=== PATIENT | female | born 1955 | race Caucasian/White ===

== ENCOUNTER 2016-12-01 10:10 | Outpatient (CLI) | payer OTHER ==
[2016-12-01 11:29] LABS: HEMOGLOBIN A1C 1.83 g/dL
== END 2016-12-01 10:11 | disposition home or self-care (01) ==
LOC: LAB 10:10
PROVIDERS: ATTEND Obstetrics & Gynecology
DX: Z13.1 Encounter for screening for diabetes mellitus (principal)
CPT/HCPCS: 36415; 82947; 83036; 86803

== ENCOUNTER 2016-12-06 13:42 | Outpatient (CLI) | payer OTHER ==
--- NOTE | 2016-12-09 18:15 | Mammography Report ---
DIGITAL BILATERAL SCREENING MAMMOGRAM: 12/06/2016 HISTORY: Asymptomatic 61-year-old female. COMPARISON: 02/2012 and 02/2008. TECHNIQUE: Routine CC and MLO projections were obtained of the breasts. FINDINGS: Scattered fibroglandular tissue is present within the breasts. There are no dominant masses, suspicious microcalcifications, or secondary signs of malignancy. In comparison to the previous studies, there are no significant changes. The pattern of glandular asymmetry is stable. Benign vascular and parenchymal calcifications noted. ASSESSMENT: NO MAMMOGRAPHIC EVIDENCE OF MALIGNANCY. NO SIGNIFICANT INTERVAL CHANGES. RECOMMENDATION: Screening mammography is recommended annually. BIRADS category 2 - benign. STANDARD QUALIFYING STATEMENTS 1. This examination was reviewed with the aid of Computed-Aided Detection (CAD) . 2. A negative or benign imaging report should not delay biopsy if clinically suspicious findings are present. Consider surgical consultation if warranted. More than 5% of cancers are not identified by imaging. 3. Dense breasts may obscure an underlying neoplasm. JOB #: [id number] EXT JOB #: [id number] KENA
== END 2016-12-06 13:43 | disposition home or self-care (01) ==
LOC: DI 13:42
PROVIDERS: ATTEND Obstetrics & Gynecology
DX: Z12.31 Encounter for screening mammogram for malignant neoplasm of breast (principal)
CPT/HCPCS: 77067

== ENCOUNTER 2018-10-04 08:00 | Outpatient (CLI) | payer OTHER ==
[2018-10-04 16:58] LABS: H. PYLORIS ANTIGEN STL NEGATIVE (Negative)
== END 2018-10-04 23:59 | disposition home or self-care (01) ==
LOC: LAB.R 08:00
PROVIDERS: ATTEND Student in an Organized Health Care Education/Training Program
DX: R10.13 Epigastric pain (principal); R19.4 Change in bowel habit
CPT/HCPCS: 87338

== ENCOUNTER 2018-10-22 13:08 | Outpatient (CLI) | payer OTHER ==
--- NOTE | 2018-10-23 14:53 | Ultrasound Report ---
Reason: POSTMENOPAUSAL VAGINAL BLEEDING Procedure Date: 10/22/2018 Accession Number: [id number] / [id number] Procedure: US - Pelvic w/Transvaginal CPT Code: FULL RESULT: EXAM: PELVIC ULTRASOUND EXAM DATE: 10/22/2018 01:44 PM. CLINICAL HISTORY: Intermittent postmenopausal bleeding. COMPARISON: None. TECHNIQUE: Realtime transabdominal pelvic scan performed to identify the uterus and adnexa and as an overview of other pelvic structures, with static image documentation. Patient declined transvaginal imaging. FINDINGS: Uterus: 7.2 x 3.6 x 4.5 cm, volume 60 cc. Anteverted position. Normal overall size and echotexture. Masses: None. Endometrium: 2 mm. Normal. Cervix: Unremarkable. Right Ovary: 1.9 x 0.9 x 1.6 cm, volume 1.5 cc. Normal echotexture and blood flow. Left Ovary: Not visualized. Free Fluid: None. Other: None. IMPRESSION: 1. Thin likely atrophic endometrium. No masses. 2. Left ovary not visualized and likely obscured by bowel gas. RADIA
== END 2018-10-22 13:09 | disposition home or self-care (01) ==
LOC: DI 13:08
PROVIDERS: ATTEND Obstetrics & Gynecology
DX: N95.0 Postmenopausal bleeding (principal)
CPT/HCPCS: 76830; 76856

== ENCOUNTER 2018-11-05 16:04 | Outpatient (CLI) | payer OTHER ==
[2018-11-05 16:17] LABS: BASOPHILS % (AUTO) 0.5 %; EOSINOPHILS # (AUTO) 0.1 10^3/uL (0.0-0.7); EOSINOPHILS % (AUTO) 1.4 %; HGB - HEMOGLOBIN 14.9 g/dL (12.0-16.0); LYMPHOCYTES # (AUTO) 2.2 10^3/uL (1.5-3.5); LYMPHOCYTES % (AUTO) 34.4 %; MEAN CORPUSCULAR HEMOGLOBIN 30.7 pg (27.0-31.0); MEAN CORPUSCULAR VOLUME 93.2 fL (81.0-99.0); MEAN PLATELET VOLUME 9.4 fL (7.9-10.8); MONOCYTES # (AUTO) 0.5 10^3/uL (0.0-1.0); MONOCYTES % (AUTO) 7.7 %; NEUTROPHILS # (AUTO) 3.5 10^3/uL (1.5-6.6); NEUTROPHILS % (AUTO) 55.8 %; PLT - PLATELET COUNT 256 10^3/uL (130-450); RED BLOOD COUNT 4.85 10^6/uL (4.20-5.40); RED CELL DISTRIBUTION WIDTH 13.4 % (12.0-15.0); WHITE BLOOD COUNT 6.3 x10^3/uL (4.8-10.8)
[2018-11-05 16:40] LABS: BUN - BLOOD UREA NITROGEN 15 mg/dL (6-20); CALCIUM 9.6 mg/dL (8.5-10.3); CARBON DIOXIDE - CO2 23 mmol/L (21-32); CHLORIDE 104 mmol/L (101-111); CHOL/HDL RATIO 3.9 (<4.4); CHOLESTEROL 152 mg/dL; CREATININE 0.7 mg/dL (0.4-1.0); GFR - MDRD 84 (>89); GLUCOSE 211 mg/dL (70-100); HDL CHOLESTEROL 39 mg/dL; LDL CHOLESTEROL,CALCULATED 69 mg/dL; LDL/HDL RATIO 1.8 (<4.4); SODIUM 139 mmol/L (135-145); VLDL CHOLESTEROL 44 mg/dL
== END 2018-11-05 16:05 | disposition home or self-care (01) ==
LOC: LAB 16:04
PROVIDERS: ATTEND Internal Medicine Cardiovascular Disease
DX: I25.10 Atherosclerotic heart disease of native coronary artery without angina pectoris (principal); E78.5 Hyperlipidemia, unspecified
CPT/HCPCS: 36415; 80048; 80061; 83721; 85025

== ENCOUNTER 2018-12-07 14:18 | Outpatient (CLI) | payer OTHER ==
--- NOTE | 2018-12-07 16:15 | Mammography Report ---
Reason: ROUTINE MAMMO Procedure Date: 12/07/2018 Accession Number: [id number] / [id number] Procedure: ISAAC - Screening Mammo w/Carl CPT Code: FULL RESULT: EXAM: Screening Mammo w/Carl DATE: 12/07/2018 2:46 PM CLINICAL HISTORY: Screening encounter. TECHNIQUE: (B) - Bilateral CC and MLO views were obtained. Left laterally exaggerated CC views obtained. COMPARISON: 12/06/2016 and 03/12/2012. PARENCHYMAL PATTERN: (A) - The breast(s) demonstrate(s) scattered fibroglandular densities. FINDINGS: There are typically benign vascular calcifications. There are typically benign coarse calcifications. There are no suspicious masses, calcifications, or areas of distortion. IMPRESSION: Benign findings. BI-RADS category 2. RECOMMENDATION: (ANNUAL) - Recommend routine annual screening mammography. BI-RADS CATEGORY: (2) - Benign Findings. STANDARD QUALIFYING STATEMENTS: 1. This examination was not reviewed with the aid of Computer-Aided Detection (CAD). 2. A negative or benign imaging report should not preclude biopsy if clinically suspicious findings are present. 3. Dense breasts may obscure an underlying neoplasm. 4. This examination was reviewed with the aid of 3D breast imaging (tomosynthesis).
== END 2018-12-07 14:19 | disposition home or self-care (01) ==
LOC: DI 14:18
PROVIDERS: ATTEND Obstetrics & Gynecology
DX: Z12.31 Encounter for screening mammogram for malignant neoplasm of breast (principal)
CPT/HCPCS: 77063; 77067

== ENCOUNTER 2020-03-19 21:03 | Emergency (ER) | payer OTHER ==
--- NOTE | 2020-03-19 21:36 | ED Physician Documentation ---
PD HPI HEENT - Stated complaint Stated Complaint: DIZZY, VOMITING, DIARRHEA - Chief complaint Chief Complaint: Neuro - History obtained from History obtained from: Patient - History of Present Illness Timing - onset: How many days ago (2) Timing - duration: Days (2) Timing - details: Gradual onset, Still present, Waxing and waning Location: Other (feeling of vertigo with head movement, improved with rest. Worse to right or lying on right. Some feeling of ear fullness and frontal sinus/head area. Some headache frontal. No diffuse headache. No fumbling with movements.) Associated symptoms: No: Fever, Congestion, Swollen nodes, Cough Similar symptoms before: Diagnosis (had vertigo in the past, associated with some headache and told it was migraine. Ongoing tinnitus, but not regular vertigo.) Recently seen: Clinic (had Metformin stopped and Januvia increased about a month ago.) Review of Systems Ears: reports: Ear pain (feels fullness right ear and also some frontal sinus headache), Tinnitus/ringing (chronic, somewhat worse recently). denies: Loss of hearing Nose: reports: Congestion, Sinus pressure / pain. denies: Rhinorrhea / runny nose Throat: denies: Sore throat Respiratory: denies: Cough GI: reports: Nausea (with head movement, improved with rest. Notes it more when turning or lying on right.), Vomiting. denies: Abdominal Pain, Constipation, Diarrhea Skin: denies: Rash, Lesions Neurologic: reports: Headache (frontal area). 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 : None Musculoskeletal: None Derm: None Other Past Medical History: IBS - Past Surgical History Past Surgical History: Yes Cardiovascular: Coronary stent, Other - Present Medications Home Medications: Ambulatory Orders Medication Instructions Recorded Confirmed Vitamin E (Dl,Tocopheryl Acet) 1 tab PO DAILY 12/05/15 12/05/15 [Vitamin E] Aspirin Chewable [St Stefan 1 tab PO DAILY 03/19/20 03/19/20 Aspirin] Atorvastatin Calcium 1 tab PO DAILY 03/19/20 03/19/20 Clopidogrel [Plavix] 1 tab PO DAILY 03/19/20 03/19/20 Empagliflozin [Jardiance] 1 tab PO BID 03/19/20 03/19/20 Losartan Potassium 1 tab PO BID 03/19/20 03/19/20 Metoprolol Succinate [Toprol Xl] 1 tab PO DAILY 03/19/20 03/19/20 Nitroglycerin [Nitrostat] 1 tab PO PRN PRN 03/19/20 03/19/20 Pantoprazole [Protonix] 1 tab PO DAILY 03/19/20 03/19/20 Diazepam [Valium] 2 mg PO Q8H PRN #12 tablet 03/20/20 Meclizine HCl [Antivert] 25 mg PO Q8H PRN #30 tablet 03/20/20 dexAMETHasone [Decadron] 4 mg PO DAILY #5 tablet 03/20/20 - Allergies Allergies/Adverse Reactions: Allergies Allergy/AdvReac Type Severity Reaction Status Date / Time Opioids - Morphine Analogues Allergy Emesis Verified 03/19/20 21:09 Penicillins Allergy Unknown Verified 03/19/20 21:09 Sulfa (Sulfonamide Allergy Emesis Verified 03/19/20 21:09 Antibiotics) - Social History Does the pt smoke?: No Smoking Status: Never smoker Does the pt drink ETOH?: No Does the pt have substance abuse?: No - Immunizations Immunizations are current?: Yes - POLST Patient has POLST: No PD ED PE NORMAL - Vitals Vital signs reviewed: Yes - General General: Alert and oriented X 3, Well developed/nourished, Other (appears uncomfortable with head movement, particularly to the right. ) - HEENT HEENT: Atraumatic, PERRL, EOMI (with nystagmus fast component to the right. TMs are normal appearing. ), Ears normal, Moist mucous membranes, Pharynx benign, Other (some mild tenderness frontal area to percussion. 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, No motor deficit, No sensory deficit, Normal speech, Other Eye Opening: Spontaneous Motor: Obeys Commands Verbal: Oriented GCS Score: 15 - Psych Psych: Normal mood Results - Vitals Vitals: Vital Signs - 24 hr 03/19/20 03/19/20 03/19/20 21:06 21:09 22:56 Temperature 36.6 C 36.6 C 36.6 C Heart Rate 78 78 64 Respiratory 16 16 15 Rate Blood Pressure 167/83 H 167/83 H 143/90 H O2 Saturation 99 99 99 03/19/20 03/20/20 03/20/20 23:47 01:49 02:29 Temperature 36.6 C 36.7 C 36.7 C Heart Rate 62 65 64 Respiratory 15 16 16 Rate Blood Pressure 128/85 H 129/84 H 130/82 H O2 Saturation 100 100 98 Oxygen O2 Source Room air - Labs Labs: Laboratory Tests 03/19/20 03/19/20 03/19/20 21:30 21:37 21:37 WBC 7.1 RBC 5.39 Hgb 16.9 H Hct 49.3 H MCV 91.5 MCH 31.4 H MCHC 34.3 RDW 12.4 Plt Count 238 MPV 10.2 Neut # (Auto) 5.3 Lymph # (Auto) 1.4 L Chambers # (Auto) 0.4 Eos # (Auto) 0.1 Baso # (Auto) 0.0 Absolute Nucleated RBC 0.00 Nucleated RBC % 0.0 VBG pH VBG pCO2 VBG pO2 VBG HCO3 VBG Total CO2 VBG O2 Saturation VBG Base Excess Sodium 137 Potassium 3.9 Chloride 101 Carbon Dioxide 20 L Anion Gap 16.0 H BUN 14 Creatinine 0.7 Estimated GFR (MDRD) 84 L Glucose 163 H Calcium 9.3 Magnesium 2.1 Total Bilirubin 4.5 H AST 26 ALT 31 Alkaline Phosphatase 77 Total Protein 7.6 Albumin 4.5 Globulin 3.1 Albumin/Globulin Ratio 1.5 Serum Ketones SMALL H 03/20/20 01:25 WBC RBC Hgb Hct MCV MCH MCHC RDW Plt Count MPV Neut # (Auto) Lymph # (Auto) Chambers # (Auto) Eos # (Auto) Baso # (Auto) Absolute Nucleated RBC Nucleated RBC % VBG pH 7.392 VBG pCO2 27.6 L VBG pO2 151.4 H VBG HCO3 16.4 L VBG Total CO2 17.3 L VBG O2 Saturation 98.5 H VBG Base Excess -6.6 L Sodium Potassium Chloride Carbon Dioxide Anion Gap BUN Creatinine Estimated GFR (MDRD) Glucose Calcium Magnesium Total Bilirubin AST ALT Alkaline Phosphatase Total Protein Albumin Globulin Albumin/Globulin Ratio Serum Ketones PD MEDICAL DECISION MAKING - ED course Complexity details: reviewed results (head CT and labs), re-evaluated patient (improved vertigo and able to walk to bathroom, with getting up slowly. Still some vertigo but no vomiting. ), considered differential (seems like peripheral vertigo, but does have some frontal headache. Got CT to ensure no tumor, swelling, bleeding nor sinus fullness. The CT is okay. Meanwhile, gave IV fluids and Meclizing/Diazepam and vertigo much improved. ), d/w patient Departure - Departure Disposition: 01 Home, Self Care Clinical Impression: Peripheral vertigo Qualifiers: Laterality: right Qualified Code(s): H81.391 - Other peripheral vertigo, right ear Labyrinthitis, acute Qualifiers: Laterality: unspecified laterality Qualified Code(s): H83.09 - Labyrinthitis, unspecified ear Condition: Stable Record reviewed to determine appropriate education?: Yes Instructions: ED Labyrinthitis, ED Vertigo Unspecified Follow-Up: Genoveva Tomas MD [Primary Care Provider] - Prescriptions: Meclizine HCl [Antivert] 25 mg PO Q8H PRN #30 tablet PRN Reason: Vertigo dexAMETHasone [Decadron] 4 mg PO DAILY #5 tablet Diazepam [Valium] 2 mg PO Q8H PRN #12 tablet PRN Reason: Vertigo Comments: The Jardiance does not seem to be associated with vertigo. Presume it is unrelated. Your head CT is normal without any signs of tumors bleeding swelling or stroke. I think your vertigo/dizziness is coming from increased inflammation or fluid pressure in the inner ear causing an abnormal signaling to slight movement. I would anticipate improving on this with the steroid anti-inflammatory as well as motion sickness medicine. Take the Decadron and meclizine as directed regularly. To that add diazepam every 6-8 hours if needed for the dizziness. Move slow and change position smoothly. Follow-up with your primary care if not improved well over the next 1 to 2 days. Discharge Date/Time: 03/20/20 03:07
[2020-03-19 22:13] LABS: BASOPHILS % (AUTO) 0.4 %; EOSINOPHILS # (AUTO) 0.1 10^3/uL (0.0-0.7); EOSINOPHILS % (AUTO) 0.7 %; HGB - HEMOGLOBIN 16.9 g/dL (12.0-16.0); LYMPHOCYTES # (AUTO) 1.4 10^3/uL (1.5-3.5); LYMPHOCYTES % (AUTO) 19.3 %; MEAN CORPUSCULAR HEMOGLOBIN 31.4 pg (27.0-31.0); MEAN CORPUSCULAR HGB CONC 34.3 g/dL (32.0-36.0); MEAN CORPUSCULAR VOLUME 91.5 fL (81.0-99.0); MEAN PLATELET VOLUME 10.2 fL (7.9-10.8); MONOCYTES # (AUTO) 0.4 10^3/uL (0.0-1.0); MONOCYTES % (AUTO) 5.1 %; NEUTROPHILS # (AUTO) 5.3 10^3/uL (1.5-6.6); NEUTROPHILS % (AUTO) 74.1 %; PLT - PLATELET COUNT 238 10^3/uL (130-450); RED BLOOD COUNT 5.39 10^6/uL (4.20-5.40); RED CELL DISTRIBUTION WIDTH 12.4 % (12.0-15.0); WHITE BLOOD COUNT 7.1 x10^3/uL (4.8-10.8)
[2020-03-19] MEDS: KETOROLAC 30 MG/ML VIAL IVP STA (22:19)
[2020-03-19] MEDS: diazePAM INJ 5 MG/ML SYRINGE IVP STA (22:19)
[2020-03-19] MEDS: SODIUM CHLORIDE 0.9% 1,000 ML IV STA (22:20)
[2020-03-19] MEDS: ACETAMINOPHEN 325 MG TABLET PO STA (22:20)
[2020-03-19] MEDS: MECLIZINE 12.5 MG TABLET PO STA (22:20)
[2020-03-19 22:22] LABS: ALBUMIN 4.5 g/dL (3.2-5.5); ALBUMIN/GLOBULIN RATIO 1.5 (1.0-2.2); BILIRUBIN,TOTAL 4.5 mg/dL (0.2-1.0); CALCIUM 9.3 mg/dL (8.5-10.3); CREATININE 0.7 mg/dL (0.4-1.0); MAGNESIUM 2.1 mg/dL (1.7-2.8); TOTAL PROTEIN 7.6 g/dL (6.7-8.2)
[2020-03-19] MEDS: KETOROLAC 15 MG/ML VIAL IVP STA (22:41)
[2020-03-20] MEDS: diazePAM INJ 5 MG/ML SYRINGE IVP STA (00:06)
[2020-03-20] MEDS: DEXAMETHASONE 10 MG/ML VIAL IVP STA (00:06)
[2020-03-20] MEDS: SODIUM CHLORIDE 0.9% 1,000 ML IV STA (01:16)
[2020-03-20 01:30] LABS: VBG PCO2 27.6 mmHg (41-51); VBG PH 7.392 (7.31-7.41); VBG PO2 151.4 mmHg (25-47); VBG TOTAL CO2 17.3 mmol/L (24-29)
[2020-03-20 01:31] LABS: VBG BASE EXCESS -6.6 mmol/L (-2 - +2)
[2020-03-20 02:30] VITALS: BP 130/82
--- NOTE | 2020-03-20 07:12 | CT Report ---
PROCEDURE: HEAD WO INDICATIONS: frontal headache and dizziness TECHNIQUE: Noncontrast 4.5 mm thick angled axial sections acquired from the foramen magnum to the vertex. For r adiation dose reduction, the following was used: automated exposure control, adjustment of mA and/or kV according to patient size. COMPARISON: None. FINDINGS: Image quality: Excellent. CSF spaces: Basal cisterns are patent. No extra-axial fluid collections. Ventricles are normal in size and shape. Brain: No midline shift. No intracranial masses or hemorrhage. Walden-white matter interface is norm al. Scattered bilateral periventricular white matter hypoattenuation likely sequela from chronic small ve ssel ischemic disease. Atherosclerotic calcifications within the intracranial segments of the bilater al internal carotid arteries are noted. Skull and face: Calvarium and visualized facial bones are intact, without suspicious lesions. Sinuses: Visualized sinuses and mastoids are clear. IMPRESSION: CT head without acute intracranial abnormalities. Age-related senescent changes and sequela of chronic small vessel ischemic disease. No significant discrepancy with initial interpretation by overnight radiologist. Reviewed by: Juan Archer MD on 03/20/2020 7:11 AM PST Approved by: Juan Archer MD on 03/20/2020 7:11 AM PST Station ID: [id number]
== END 2020-03-20 03:07 | disposition home or self-care (01) ==
LOC: ED 21:03
DX: H81.391 Other peripheral vertigo, right ear (principal); H83.09 Labyrinthitis, unspecified ear; I10 Essential (primary) hypertension; E11.9 Type 2 diabetes mellitus without complications; Z79.4 Long term (current) use of insulin
CPT/HCPCS: 36415; 70450; 80053; 82009; 82803; 83735; 85025; 96361; 96374; 96375; 99284; A9270

== ENCOUNTER 2020-08-20 10:43 | Outpatient (CLI) | payer OTHER ==
--- NOTE | 2020-08-21 13:23 | Mammography Report ---
BILATERAL DIGITAL SCREENING MAMMOGRAM 3D/2D: 08/20/2020 CLINICAL: Routine screening. Comparison is made to exams dated: 12/07/2018 mammogram, 12/15/2016 mammogram, and 03/12/2012 mammogra m - [facility]. There are scattered fibroglandular elements in both breasts. There are benign vascular calcifications in both breasts. No significant masses, calcifications, or other findings are seen in either breast. There has been no significant interval change. IMPRESSION: BENIGN There is no mammographic evidence of malignancy. A 1 year screening mammogram is recommended. This exam was interpreted at Station ID: [id number]. NOTE: For mammograms, a report in lay terms will be sent to the patient. Approximately 15% of breast malignancies will not be visualized mammographically. In the management of a palpable breast mass, a negative mammogram must not discourage biopsy of a clinically suspicious lesion. Electronically Signed By: Frida Oliva M.D. krrhea/penrad:08/20/2020 19:49:39 ACR BI-RADS Category 2: Benign Finding(s) 3342F PARENCHYMAL PATTERN: (A) - The breast(s) demonstrate(s) scattered fibroglandular densities. BI-RADS CATEGORY: (2) - 2 RECOMMENDATION: (ANNUAL) - Recommend routine annual screening mammography. [id number] 1 year screening LATERALITY: (B)
== END 2020-08-20 10:44 | disposition home or self-care (01) ==
LOC: DI 10:43
PROVIDERS: ATTEND Internal Medicine
DX: Z12.31 Encounter for screening mammogram for malignant neoplasm of breast (principal)

== ENCOUNTER 2020-09-12 07:39 | Day surgery (SDC) | payer OTHER ==
[2020-09-12] MEDS ORDERED: LACTATED RINGERS 1,000 ML IV ONE (08:14)
[2020-09-12] MEDS ORDERED: fentaNYL 250 MCG/5 ML VIAL ONE (09:49)
[2020-09-12] MEDS ORDERED: MIDAZOLAM 2 MG/2 ML VIAL ONE ×2 (09:49→10:12)
[2020-09-12] MEDS ORDERED: ONDANSETRON 4 MG/2 ML VIAL ONE (09:50)
[2020-09-12] MEDS ORDERED: LACTATED RINGERS 600 ML IV ONE (10:33)
[2020-09-12 11:15] VITALS: BP 123/73
== END 2020-09-12 07:40 | disposition home or self-care (01) ==
LOC: SDS 07:39
PROVIDERS: ATTEND Surgery
PROC: 0DBL8ZZ Excision of Transverse Colon, Via Natural or Artificial Opening Endoscopic (ICD-10-PCS; 2020-09-12)
PROC: 0DBK8ZZ Excision of Ascending Colon, Via Natural or Artificial Opening Endoscopic (ICD-10-PCS; principal; 2020-09-12 09:45)
DX: Z12.11 Encounter for screening for malignant neoplasm of colon (principal); D12.2 Benign neoplasm of ascending colon; D12.3 Benign neoplasm of transverse colon; K64.8 Other hemorrhoids; K64.4 Residual hemorrhoidal skin tags; Z87.891 Personal history of nicotine dependence
CPT/HCPCS: 45380; J3010; J7120

== ENCOUNTER 2021-05-17 14:54 | Emergency (ER) | payer OTHER ==
[2021-05-17 15:02] VITALS: BP 161/85
--- NOTE | 2021-05-17 15:33 | XRAY Report ---
PROCEDURE: Foot 3 View LT INDICATIONS: Trauma TECHNIQUE: 3 views of the foot were acquired. COMPARISON: None. FINDINGS: BONES: No acute, displaced fracture or dislocation. Dorsal calcaneal enthesophyte. SOFT TISSUES: No focal abnormality. Diffuse vascular calcifications. IMPRESSION: 1.No acute osseous abnormality. Reviewed by: Johnson Turner MD on 05/17/2021 3:[address] [facility] Approved by: Johnson Turner MD on 05/17/2021 3:[address] [facility] Station ID: [id number]
--- NOTE | 2021-05-17 16:20 | ED Physician Documentation ---
History of Present Illness - Stated complaint Stated Complaint: L FT INJ - Chief complaint Chief Complaint: Ext Problem - Additonal information Additional information: 66 year old female presents with acute left foot pain. reports that for months her arch has her. Suddenly last night when walking she felt a severe pop and pain and now has bruising. difficulty bearing weight. no fevers. no xh fo similar. 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 : None Musculoskeletal: None Derm: None - Past Surgical History Past Surgical History: Yes Cardiovascular: Coronary stent, Other - Present Medications Home Medications: Ambulatory Orders Medication Instructions Recorded Confirmed Vitamin E (Dl,Tocopheryl Acet) 1,000 unit PO DAILY 12/05/15 09/12/20 [Vitamin E] Aspirin Chewable [St Stefan 1 tab PO DAILY 03/19/20 09/12/20 Aspirin] Atorvastatin Calcium 1 tab PO DAILY 03/19/20 09/12/20 Empagliflozin [Jardiance] 1 tab PO DAILY 03/19/20 09/12/20 Losartan Potassium 1 tab PO BID 03/19/20 09/12/20 Metoprolol Succinate [Toprol Xl] 1 tab PO DAILY 03/19/20 09/12/20 Nitroglycerin [Nitrostat] 1 tab PO PRN PRN 03/19/20 09/12/20 Pantoprazole [Protonix] 1 tab PO DAILY 03/19/20 09/12/20 Diazepam [Valium] 2 mg PO Q8H PRN #12 tablet 03/20/20 09/12/20 Meclizine HCl [Antivert] 25 mg PO Q8H PRN #30 tablet 03/20/20 09/12/20 polyethylene glycoL 3350 [Miralax] 17 gm PO DAILY 09/12/20 09/12/20 - Allergies Allergies/Adverse Reactions: Allergies Allergy/AdvReac Type Severity Reaction Status Date / Time Opioids - Morphine Analogues Allergy Emesis Verified 05/17/21 15:00 Penicillins Allergy Unknown Verified 05/17/21 15:00 Sulfa (Sulfonamide Allergy Emesis Verified 05/17/21 15:00 Antibiotics) - Social History Does the pt smoke?: No Smoking Status: Never smoker Does the pt drink ETOH?: No Does the pt have substance abuse?: No - Immunizations Immunizations are current?: Yes - POLST Patient has POLST: No PD ED PE EXPANDED - General General: Alert, No acute distress - Extremities Extremities: Left foot (swelling, ecchytmosis medial arch. 2+DP pulse. no pain at base fo 5th metatarsal. full ROM in all planes) Results - Vitals Vitals: Vital Signs - 24 hr 05/17/21 15:00 Temperature 36.4 C L Heart Rate 79 Respiratory 18 Rate Blood Pressure 161/85 H O2 Saturation 98 Oxygen O2 Source Room air - Rads (name of study) left foot xr Radiology: Final report received (no acute fracture) PD MEDICAL DECISION MAKING - ED course Complexity details: reviewed results, d/w patient ED course: acute pain in left foto at arch. no trauma. xray negative. hx suggest plantar fascia tear. pt unable to bear weight. toelrates crutches. placed in walking boot. needs podiatry f/u. recommend NSAID. emergent return precautions discussed Departure - Departure Disposition: 01 Home, Self Care Clinical Impression: Plantar fascia rupture Qualifiers: Encounter type: initial encounter Laterality: left Qualified Code(s): S93.692A - Other sprain of left foot, initial encounter Condition: Stable Record reviewed to determine appropriate education?: Yes Instructions: ED Plantar Fasciitis Comments: Anni the xray of your foot is normal. As we discussed at the bedside, I suspect that you have a torn plantar fascia on yoru foot. You need to follow up with a infertility nurse. You need to remain non weight bearing on the left foot until seen by the foot doctor. In general you can take tylenol or motrin for pain control
== END 2021-05-17 16:43 | disposition home or self-care (01) ==
LOC: ED 14:54
DX: S93.692A Other sprain of left foot, initial encounter (principal); X58.XXXA Exposure to other specified factors, initial encounter; E11.9 Type 2 diabetes mellitus without complications
CPT/HCPCS: 99281; 99283

== ENCOUNTER 2022-02-01 19:48 | Emergency (ER) | payer MEDICARE, MEDICAID ==
--- NOTE | 2022-02-01 20:30 | XRAY Report ---
PROCEDURE: Toe(s) LT INDICATIONS: L great toe diabetic infection TECHNIQUE: 3 views of the first toe(s) acquired. COMPARISON: None FINDINGS: Bones: No fractures or dislocations. No suspicious bony lesions. Soft tissues: No suspicious soft tissue densities. IMPRESSION: There is soft tissue swelling at the great toe but no osteomyelitis or gas in the soft tissues is fou nd. Reviewed by: Patrice Chamorro MD on 02/01/2022 8:28 PM PDT Approved by: Patrice Chamorro MD on 02/01/2022 8:28 PM PDT Station ID: [id number]
--- NOTE | 2022-02-01 20:57 | ED Physician Documentation ---
PD HPI LOWER EXT INJURY - Stated complaint Stated Complaint: L TOE PX - Chief complaint Chief Complaint: Wound - History obtained from History obtained from: Patient - History of Present Illness PD HPI LOW EXT INJURY LOCATION: Left, Toe Timing - onset: How many days ago (2) - Additional information Additional information: 66-year-old female with history of ixo-fdacsui-gczzuxdyk diabetes presents by private vehicle for gradually worsening left great toe blistering. Patient states that 2 days ago she noticed a blood blister on the bottom of her foot that was painful when she ambulated. It burst earlier today and has become more painful and so she is here for evaluation. She has not been able to make an appointment with a gaming director since it is the weekend. She has been putting antibiotic ointment on the wound and wrapping it, but it does not seem to be getting better. Patient states that she has been noncompliant with her diabetic medications and has not been watching her blood sugars very closely. Review of Systems Ten Systems: 10 systems reviewed and negative Constitutional: denies: Fever, Chills, Myalgias Cardiac: denies: Chest pain / pressure, Palpitations, Calf pain Respiratory: denies: Dyspnea, Cough, Wheezing Musculoskeletal: reports: Extremity pain. 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 : None Musculoskeletal: None Derm: None - Past Surgical History Past Surgical History: Yes Cardiovascular: Coronary stent, Other - Present Medications Home Medications: Ambulatory Orders Medication Instructions Recorded Confirmed Vitamin E (Dl,Tocopheryl Acet) 1,000 unit PO DAILY 12/05/15 09/12/20 [Vitamin E] Aspirin Chewable [St Stefan 1 tab PO DAILY 03/19/20 09/12/20 Aspirin] Atorvastatin Calcium 1 tab PO DAILY 03/19/20 09/12/20 Empagliflozin [Jardiance] 1 tab PO DAILY 03/19/20 09/12/20 Losartan Potassium 1 tab PO BID 03/19/20 09/12/20 Metoprolol Succinate [Toprol Xl] 1 tab PO DAILY 03/19/20 09/12/20 Nitroglycerin [Nitrostat] 1 tab PO PRN PRN 03/19/20 09/12/20 Pantoprazole [Protonix] 1 tab PO DAILY 03/19/20 09/12/20 Diazepam [Valium] 2 mg PO Q8H PRN #12 tablet 03/20/20 09/12/20 Meclizine HCl [Antivert] 25 mg PO Q8H PRN #30 tablet 03/20/20 09/12/20 polyethylene glycoL 3350 [Miralax] 17 gm PO DAILY 09/12/20 09/12/20 Doxycycline Hyclate 100 mg PO BID #14 tab 02/01/22 Semaglutide [Ozempic] 1 mg SQ Q7D 28 Days #3 ml 02/01/22 cephALEXin [Keflex] 500 mg PO Q6H #28 cap 02/01/22 - Allergies Allergies/Adverse Reactions: Allergies Allergy/AdvReac Type Severity Reaction Status Date / Time Opioids - Morphine Analogues Allergy Emesis Verified 02/01/22 19:58 Penicillins Allergy Unknown Verified 02/01/22 19:58 Sulfa (Sulfonamide Allergy Emesis Verified 02/01/22 19:58 Antibiotics) - Social History Does the pt smoke?: No Smoking Status: Never smoker Does the pt drink ETOH?: No Does the pt have substance abuse?: No - Immunizations Immunizations are current?: Yes - POLST Patient has POLST: No PD ED PE NORMAL - Vitals Vital signs reviewed: Yes - General General: Alert and oriented X 3, No acute distress, Well developed/nourished - HEENT HEENT: Atraumatic, PERRL, EOMI - Cardiac Cardiac: RRR, No murmur, Strong equal pulses - Respiratory Respiratory: No respiratory distress, Clear bilaterally - Back Back: No CVA TTP, No spinal TTP - Derm Derm: Normal color, Warm and dry, No rash - Extremities Extremities: No tenderness to palpate, Normal ROM s pain, No edema, Other (Burst blister over pad of L great toe) - Neuro Neuro: Alert and oriented X 3, Normal speech - Psych Psych: Normal mood, Normal affect Results - Vitals Vitals: Vital Signs - 24 hr 02/01/22 02/01/22 19:50 21:27 Temperature 36.1 C L Heart Rate 73 70 Respiratory 16 18 Rate Blood Pressure 159/101 H 144/78 H O2 Saturation 98 98 Oxygen O2 Source Room air PD MEDICAL DECISION MAKING - ED course Complexity details: reviewed results, re-evaluated patient, considered differential, d/w patient ED course: Diabetic blister on left great toe. No obvious cellulitis, but does appear to involve the base of the toe. X-rays negative for gas or osteomyelitis. Patient's wound was thoroughly irrigated with Betadine and normal saline solution and wrapped in clean dressing. She was given a post-op shoe for ambulation to minimize rubbing of the blister and worsening infection. Started on keflex and doxy for infection control. Patient additionally requested a refill of her Ozempic prescription as it has helped with her sugars in the past. This was sent to the pharmacy of her choice. Patient was counseled on the importance of following up with podiatry and primary care as well as keeping a close eye on her blood sugars to avoid worsening infection. Departure - Departure Disposition: 01 Home, Self Care Clinical Impression: Diabetic toe ulcer Condition: Stable Instructions: Diabetes Treat Minor Foot Infecs Prescriptions: Doxycycline Hyclate 100 mg PO BID #14 tab cephALEXin [Keflex] 500 mg PO Q6H #28 cap Semaglutide [Ozempic] 1 mg SQ Q7D 28 Days #3 ml Discharge Date/Time: 02/01/22 21:28
[2022-02-01 21:27] VITALS: BP 144/78
== END 2022-02-01 21:28 | disposition home or self-care (01) ==
LOC: ED 19:48
DX: E11.621 Type 2 diabetes mellitus with foot ulcer (principal); L97.529 Non-pressure chronic ulcer of other part of left foot with unspecified severity; Z79.84 Long term (current) use of oral hypoglycemic drugs; I10 Essential (primary) hypertension; I25.2 Old myocardial infarction
CPT/HCPCS: 73660; 99283; 99284

== ENCOUNTER 2022-02-03 01:02 | Emergency (ER) | payer MEDICARE, MEDICAID ==
[2022-02-03 01:56] LABS: BASOPHILS # (AUTO) 0.1 10^3/uL (0.0-0.1); BASOPHILS % (AUTO) 0.9 %; EOSINOPHILS # (AUTO) 0.1 10^3/uL (0.0-0.7); HCT - HEMATOCRIT 42.2 % (37.0-47.0); HGB - HEMOGLOBIN 14.7 g/dL (12.0-16.0); LYMPHOCYTES # (AUTO) 2.1 10^3/uL (1.5-3.5); LYMPHOCYTES % (AUTO) 35.4 %; MEAN CORPUSCULAR HEMOGLOBIN 32.7 pg (27.0-31.0); MEAN CORPUSCULAR HGB CONC 34.8 g/dL (32.0-36.0); MONOCYTES # (AUTO) 0.6 10^3/uL (0.0-1.0); MONOCYTES % (AUTO) 9.7 %; NEUTROPHILS # (AUTO) 3.1 10^3/uL (1.5-6.6); NEUTROPHILS % (AUTO) 52.8 %; PLT - PLATELET COUNT 212 10^3/uL (130-450); RED BLOOD COUNT 4.49 10^6/uL (4.20-5.40); RED CELL DISTRIBUTION WIDTH 13.1 % (12.0-15.0); WHITE BLOOD COUNT 5.9 x10^3/uL (4.8-10.8)
--- NOTE | 2022-02-03 01:56 | XRAY Report ---
PROCEDURE: Toe(s) LT INDICATIONS: Worsening lft grt toe DM ulcer TECHNIQUE: 5 views of the first toe(s) acquired. COMPARISON: 02/01/2022 plain films FINDINGS: Bones: No fractures or dislocations. No suspicious bony lesions. Soft tissues: No suspicious soft tissue densities. IMPRESSION: No gas in the soft tissues, no osteomyelitis is found. Reviewed by: Patrice Chamorro MD on 02/03/2022 1:54 AM PDT Approved by: Patrice Chamorro MD on 02/03/2022 1:54 AM PDT Station ID: [id number]
[2022-02-03 02:12] LABS: ALBUMIN/GLOBULIN RATIO 1.4 (1.0-2.2); BILIRUBIN,TOTAL 1.5 mg/dL (0.2-1.0); CALCIUM 9.2 mg/dL (8.5-10.3); CREATININE 0.6 mg/dL (0.4-1.0); POTASSIUM 3.9 mmol/L (3.5-5.0); TOTAL PROTEIN 6.8 g/dL (6.7-8.2)
--- NOTE | 2022-02-03 02:28 | ED Physician Documentation ---
History of Present Illness - Stated complaint Stated Complaint: infected toe, worsening - Chief complaint Chief Complaint: Wound - Additonal information Additional information: Patient is 66-year-old female with past medical significant for n gw-edamban-bglkkduji diabetes mellitus presenting to the emergency department for evaluation for right great toe ulceration. Was seen here few days ago. Discharged on antibiotics. Reports fill the antibiotics earlier today and has taken 1 dose thus far. States originally noted an ulceration on her great toe. Today that ulceration popped, she became highly concerned at home and came to the emergency department for reevaluation. She denies any fever, chills, chest pain, shortness of breath, abdominal pain, nausea, vomiting, diarrhea, constipation. 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 : None Musculoskeletal: None Derm: None - Past Surgical History Past Surgical History: Yes Cardiovascular: Coronary stent, Other - Present Medications Home Medications: Ambulatory Orders Medication Instructions Recorded Confirmed Vitamin E (Dl,Tocopheryl Acet) 1,000 unit PO DAILY 12/05/15 09/12/20 [Vitamin E] Aspirin Chewable [St Stefan 1 tab PO DAILY 03/19/20 09/12/20 Aspirin] Atorvastatin Calcium 1 tab PO DAILY 03/19/20 09/12/20 Empagliflozin [Jardiance] 1 tab PO DAILY 03/19/20 09/12/20 Losartan Potassium 1 tab PO BID 03/19/20 09/12/20 Metoprolol Succinate [Toprol Xl] 1 tab PO DAILY 03/19/20 09/12/20 Nitroglycerin [Nitrostat] 1 tab PO PRN PRN 03/19/20 09/12/20 Pantoprazole [Protonix] 1 tab PO DAILY 03/19/20 09/12/20 Diazepam [Valium] 2 mg PO Q8H PRN #12 tablet 03/20/20 09/12/20 Meclizine HCl [Antivert] 25 mg PO Q8H PRN #30 tablet 03/20/20 09/12/20 polyethylene glycoL 3350 [Miralax] 17 gm PO DAILY 09/12/20 09/12/20 Doxycycline Hyclate 100 mg PO BID #14 tab 02/01/22 Semaglutide [Ozempic] 1 mg SQ Q7D 28 Days #3 ml 02/01/22 cephALEXin [Keflex] 500 mg PO Q6H #28 cap 02/01/22 - Allergies Allergies/Adverse Reactions: Allergies Allergy/AdvReac Type Severity Reaction Status Date / Time Opioids - Morphine Analogues Allergy Emesis Verified 02/03/22 01:15 Penicillins Allergy Unknown Verified 02/03/22 01:15 Sulfa (Sulfonamide Allergy Emesis Verified 02/03/22 01:15 Antibiotics) - Social History Does the pt smoke?: No Smoking Status: Never smoker Does the pt drink ETOH?: No Does the pt have substance abuse?: No - Immunizations Immunizations are current?: Yes - POLST Patient has POLST: No PD ED PE NORMAL - General General: Alert and oriented X 3 - HEENT HEENT: Atraumatic - Respiratory Respiratory: No respiratory distress - Extremities Extremities: Other (Ulceration on the distal aspect of the left great toe. 2 cm x 1 cm in maximal dimension. Some erythema without significant induration, rubor or fluctuance. No crepitation appreciated. Patient has diminished sensation in her feet bilaterally.) Results - Vitals Vitals: Vital Signs - 24 hr 02/03/22 01:12 Temperature 36.9 C Heart Rate 76 Respiratory 16 Rate Blood Pressure 152/92 H O2 Saturation 96 Oxygen O2 Source Room air - Labs Labs: Laboratory Tests 02/03/22 02/03/22 02/03/22 01:50 01:50 01:50 WBC 5.9 RBC 4.49 Hgb 14.7 Hct 42.2 MCV 94.0 MCH 32.7 H MCHC 34.8 RDW 13.1 Plt Count 212 MPV 10.0 Neut # (Auto) 3.1 Lymph # (Auto) 2.1 Mclennan # (Auto) 0.6 Eos # (Auto) 0.1 Baso # (Auto) 0.1 Absolute Nucleated RBC 0.00 Nucleated RBC % 0.0 ESR 11 Sodium 137 Potassium 3.9 Chloride 103 Carbon Dioxide 25 Anion Gap 9.0 BUN 21 H Creatinine 0.6 Estimated GFR (MDRD) 99 Glucose 295 H Calcium 9.2 Total Bilirubin 1.5 H AST 23 ALT 34 Alkaline Phosphatase 88 Total Protein 6.8 Albumin 4.0 Globulin 2.8 Albumin/Globulin Ratio 1.4 Lipase 43 PD MEDICAL DECISION MAKING - ED course Complexity details: reviewed results, d/w patient ED course: Patient is 66-year-old female with past medical significant for wyd-haxkwyi-esydysnaz diabetes presenting to the emergency department for e valuation for a left great toe ulceration. Was seen here 02/01, at that time discharged on course Keflex and doxycycline. Has taken 1 dose of this medication to date. The blister she had on her toe burst today and she became highly concerned for worsening infection. She denied any fever or chills that would be concerning for systemic involvement. She is afebrile and hemodynamically stable here in the emergency department. Repeat x-rays were benign. Labs did not demonstrate any significant leukocytosis or ESR that would be concerning for osteomyelitis. She was given a dressing change here in the emergency department. Given that she is only been on her antibiotics for less than 1 day I do not believe that this in any way represents a failure of outpatient management. I will encourage her to continue to take her previously prescribed antibiotics as well as to follow-up with both podiatry and primary care. Otherwise clear return precautions and follow-up instructions given prior to discharge. Departure - Departure Disposition: 01 Home, Self Care Clinical Impression: Diabetic toe ulcer Instructions: Diabetes Treat Minor Foot Infecs, Diabetes Keep Feet Healthy, Diabetes Inspect Feet, Diabetic Foot Ulcer Dc Comments: Thank you for allowing us to care for you today [facility]. The x-rays taken today were similar to those from 2 days ago and did not show any gas pattern or changes in the bone that would be concerning for severe infection. Your blood work was also very reassuring. I have attached some information about management of diabetic foot ulcers. Please review this. I like you to continue to take your previously prescribed antibiotics. I also want you to follow-up very carefully with both your primary care doctor and podiatry as was discussed during your last ED visit. Your blood sugars remain elevated here in the emergency department and its important that you follow-up with your primary care doctor for better blood Sugar control. If it anytime you have any new or worsening symptoms please not hesitate to return.
[2022-02-03 02:46] VITALS: BP 145/89
== END 2022-02-03 02:56 | disposition home or self-care (01) ==
LOC: ED 01:02
DX: E11.621 Type 2 diabetes mellitus with foot ulcer (principal); L97.519 Non-pressure chronic ulcer of other part of right foot with unspecified severity
CPT/HCPCS: 36415; 73660; 80053; 83690; 85025; 85651; 99283

== ENCOUNTER 2022-10-14 08:00 | Outpatient (CLI) | payer MEDICARE, MEDICAID ==
[2022-10-14 12:27] LABS: % IRON SATURATION 32 % (20-50); IRON 110 ug/dL (28-170); TOTAL IRON BINDING CAPACITY 339 ug/dL (250-450); TRANSFERRIN 242 mg/dL (192-382)
[2022-10-14 12:39] LABS: THYROID STIMULATING HORMONE 1.71 uIU/mL (0.34-5.60)
[2022-10-14 12:41] LABS: FREE T3 3.19 pg/mL (2.5-3.9); FREE T4 (FREE THYROXINE) 1.21 ng/dL (0.58-1.64)
== END 2022-10-14 23:59 | disposition home or self-care (01) ==
LOC: LAB 08:00
PROVIDERS: ATTEND Nurse Practitioner
DX: L65.9 Nonscarring hair loss, unspecified (principal)
CPT/HCPCS: 36415; 82306; 82607; 82728; 83540; 84439; 84443; 84466; 84481; 84630

== ENCOUNTER 2022-10-14 10:43 | Outpatient (CLI) | payer MEDICARE, MEDICAID ==
--- NOTE | 2022-10-15 10:37 | Ultrasound Report ---
LIMITED ULTRASOUND OF RIGHT BREAST: 10/14/2022 CLINICAL: Occasional right breast pain. Comparison is made to exams dated: 10/14/2022 mammogram, 08/20/2020 mammogram, 12/07/2018 mammogram, an d 12/15/2016 mammogram - [facility]. Real-time ultrasound of the right breast retroareolar was performed. Walden scale images of the real-t ian examination were reviewed. No significant abnormalities were seen sonographically in the right breast in the region of prior joseph n. IMPRESSION: NEGATIVE There is no sonographic evidence of malignancy. A 1 year screening mammogram is recommended. Exam findings were conveyed to the patient. Patient is advised to monitor for significant change. This exam was interpreted at Station ID: [id number]. Electronically Signed By: Casper Whitmore M.D. slc/:10/14/2022 11:40:10 Ultrasound BI-RADS: 1 Negative BI-RADS CATEGORY: (1) - 1 Mammogram [id number] 1 year screening LATERALITY: (B)
--- NOTE | 2022-10-15 10:37 | Mammography Report ---
BILATERAL DIGITAL DIAGNOSTIC MAMMOGRAM 3D/2D: 10/14/2022 CLINICAL: Occasional right breast pain. Due for bilateral. Comparison is made to exams dated: 08/20/2020 mammogram, 12/07/2018 mammogram, and 12/15/2016 mammogram - [facility]. There are scattered areas of fibroglandular density in both breasts (category b / 25%-50% glandular t issue). No significant masses, calcifications, or other findings are seen in either breast. Benign vascular c alcifications in both breasts. IMPRESSION: INCOMPLETE: NEEDS ADDITIONAL IMAGING EVALUATION No mammographic evidence of malignancy. A targeted ultrasound is recommended and will immediately follow. Based on the Tyrer Cuzick model (a risk assessment model) the patients lifetime risk is 4.0% and her 10 year risk is 2.3%. According to the ACR, ACS, and NCCN guidelines, an annual breast MRI exam errol g with mammogram is recommended if the patients lifetime risk is 20% or greater. This exam was interpreted at Station ID: [id number]. NOTE: For mammograms, a report in lay terms will be sent to the patient. Approximately 15% of breast malignancies will not be visualized mammographically. In the management of a palpable breast mass, a negative mammogram must not discourage biopsy of a clinically suspicious lesion. Electronically Signed By: Casper Whitmore M.D. slc/:10/14/2022 11:38:19 ACR BI-RADS Category 0: Incomplete 3340F PARENCHYMAL PATTERN: (A) - The breast(s) demonstrate(s) scattered fibroglandular densities. BI-RADS CATEGORY: (0) - 0 Ultrasound [id number] Immediate follow-up LATERALITY: (B)
== END 2022-10-14 10:44 | disposition home or self-care (01) ==
LOC: DI 10:43
PROVIDERS: ATTEND Family Medicine
DX: N64.4 Mastodynia (principal); L65.9 Nonscarring hair loss, unspecified
CPT/HCPCS: 36415; 82306; 82607; 82728; 83540; 84439; 84443; 84466; 84481; 84630

== ENCOUNTER 2023-06-03 08:00 | Outpatient (CLI) | payer MEDICARE, MEDICAID | END 2023-06-03 23:59 | disposition home or self-care (01) | LOC: LAB.R 08:00 | PROVIDERS: ATTEND Nurse Practitioner | DX: L01.00 Impetigo, unspecified (principal) | CPT/HCPCS: 87070; 87205 ==

== ENCOUNTER 2023-10-25 14:24 | Emergency (ER) | payer MEDICARE, MEDICAID ==
[2023-10-25 14:43] VITALS: O2SAT 98
--- NOTE | 2023-10-25 15:01 | ED Physician Documentation ---
PD HPI FOCAL NEURO - Stated complaint Stated Complaint: N,DOYLE,HIGH BP - Chief complaint Chief Complaint: Neuro - History obtained from History obtained from: Patient, Family - Additional information Additional information: She has a history of recurrent vertigo and migraine type headaches and has had a recurrent headache for about 4 to 5 days, generally worsening. Nothing sudden onset. She is feeling mildly vertiginous with this and somewhat anxious. She has been seen for similar symptoms in the past with negative cranial imaging. She has been nauseous. She also has a runny nose. No fevers. She is worried about a stroke but has no particular stroke symptoms. She is diabetic and has hypertension. She does not take losartan or lisinopril due to side effects although they have been recommended and started in the past. 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 IBS - Past Surgical History Past Surgical History: Yes Cardiovascular: Coronary stent, Cardiac catheterization, Other HEENT: Cataracts - Present Medications Home Medications: Ambulatory Orders Medication Instructions Recorded Confirmed Vitamin E (Dl,Tocopheryl Acet) 1,000 unit PO DAILY 12/05/15 05/29/22 [Vitamin E] Aspirin Chewable [St Stefan 1 tab PO DAILY 03/19/20 05/29/22 Aspirin] Atorvastatin Calcium 1 tab PO DAILY 03/19/20 05/29/22 Metoprolol Succinate [Toprol Xl] 1 tab PO DAILY 03/19/20 05/29/22 Nitroglycerin [Nitrostat] 1 tab PO PRN PRN 03/19/20 05/29/22 Semaglutide [Ozempic] 1 mg SQ Q7D 28 Days #3 ml 02/01/22 05/29/22 Biotin 1 cap PO DAILY 05/29/22 05/29/22 Cholecalciferol [Vitamin D3] 10,000 unit PO DAILY 05/29/22 05/29/22 Valsartan [Diovan] 80 mg PO DAILY 05/29/22 05/29/22 Metoclopramide [Reglan] 10 mg PO Q6H PRN #20 tablet 10/25/23 amLODIPine [Norvasc] 10 mg PO DAILY #30 tablet 10/25/23 hydrOXYzine HCL [Hydroxyzine HCl] 25 mg PO Q6H PRN #15 tablet 10/25/23 - Allergies Allergies/Adverse Reactions: Allergies Allergy/AdvReac Type Severity Reaction Status Date / Time Opioids - Morphine Analogues Allergy Emesis Verified 10/25/23 14:38 Penicillins Allergy Unknown Verified 10/25/23 14:38 Sulfa (Sulfonamide Allergy Emesis Verified 10/25/23 14:38 Antibiotics) lisinopril AdvReac Emesis Verified 10/25/23 14:38 losartan AdvReac Emesis Verified 10/25/23 14:38 - Social History Does the pt smoke?: No Smoking Status: Former smoker Does the pt drink ETOH?: No Does the pt have substance abuse?: No - Immunizations Immunizations are current?: Yes - POLST Patient has POLST: No PD ED PE NORMAL - Vitals Vital signs reviewed: Yes - General General: Alert and oriented X 3, Other (Appears uncomfortable and light sensitive) - HEENT HEENT: PERRL, EOMI - Neck Neck: Supple, no meningeal sign, No bony TTP - Neuro Neuro: Alert and oriented X 3, timber deadener 2-12 intact, No motor deficit, No sensory deficit, Normal speech Eye Opening: Spontaneous Motor: Obeys Commands Verbal: Oriented GCS Score: 15 - Psych Psych: Normal mood, Normal affect Results - Vitals Vitals: Vital Signs - 24 hr 10/25/23 10/25/23 10/25/23 14:38 16:15 16:20 Temperature 36.3 C L Heart Rate 61 64 65 Respiratory 18 Rate Blood Pressure 182/73 H 163/80 H 153/81 H O2 Saturation 98 10/25/23 10/25/23 16:25 16:30 Temperature Heart Rate 68 72 Respiratory Rate Blood Pressure 160/80 H 151/74 H O2 Saturation Oxygen O2 Source Room air PD Medical Decision Making - ED course ED course: 68-year-old woman presents with headache and hypertension. Daughter notes that she is very anxious. She has a normal neurologic exam and no evidence of stroke which was her particular worry. She has no symptoms of stroke either. She was initially treated with Reglan, ketorolac, and a small dose of lorazepam after which her headache went from a 5 to about a 2-1/2. Blood pressure was still fairly high and she was administered a dose of hydralazine which made her feel better as well. She is not on an YOLANDA inhibitor or ARB because of side effects and in lieu of that we chose amlodipine to start her on pending primary care follow-up. She would also like something for nausea and anxiety and prescriptions for hydralazine and Reglan were also sent. Departure - Departure Disposition: Home, Self Care Clinical Impression: Headache Qualifiers: Headache type: tension-type Headache chronicity pattern: acute headache Intractability: not intractable Qualified Code(s): G44.209 - Tension-type headache, unspecified, not intractable Hypertension Qualifiers: Hypertension type: unspecified Qualified Code(s): I10 - Essential (primary) hypertension Condition: Good Record reviewed to determine appropriate education?: Yes Instructions: ED Cephalgia Unspecified Prescriptions: hydrOXYzine HCL [Hydroxyzine HCl] 25 mg PO Q6H PRN #15 tablet PRN Reason: Anxiety amLODIPine [Norvasc] 10 mg PO DAILY #30 tablet Metoclopramide [Reglan] 10 mg PO Q6H PRN #20 tablet PRN Reason: nausea or headache Comments: I sent your prescriptions electronically to the [facility] in [place]. You are seen today for headache and elevated blood pressure. It is not clear which 1 was the "the chicken versus the egg." Usually for people with high blood pressure associate with diabetes we prefer to use something like losartan or lisinopril, that said because you did not tolerate those in the past I am prescribing an alternative agent. We also are prescribing you some hydroxyzine which you can use as needed for the anxiety or comfort and metoclopramide for any nausea issues. Call your doctor to arrange a follow-up appointment, make the next available appointment. In the interim, return anytime if worse or if new symptoms develop. Forms: PCP List
[2023-10-25] MEDS: METOCLOPRAMIDE 10 MG/2 ML VIAL IVP STA (15:24)
[2023-10-25] MEDS: LORazepam 2 MG/ML VIAL IVP STA (15:26)
[2023-10-25] MEDS: KETOROLAC 15 MG/ML VIAL IVP STA (15:28)
[2023-10-25] MEDS: hydrALAZINE INJ 20 MG/ML VIAL IVP STA (16:11)
[2023-10-25] MEDS: ONDANSETRON 4 MG/2 ML VIAL IVP STA (16:56)
[2023-10-25 17:11] VITALS: BP 138/82
== END 2023-10-25 17:05 | disposition home or self-care (01) ==
LOC: ED 14:24
DX: G44.209 Tension-type headache, unspecified, not intractable (principal); I10 Essential (primary) hypertension; E11.9 Type 2 diabetes mellitus without complications; Z87.891 Personal history of nicotine dependence
CPT/HCPCS: 96374; 96375; 99283; 99285; J2060; J2765

== ENCOUNTER 2023-11-24 13:29 | Outpatient (CLI) | payer MEDICARE, MEDICAID ==
[2023-11-24 13:41] LABS: BASOPHILS % (AUTO) 0.5 %; EOSINOPHILS # (AUTO) 0.1 10^3/uL (0.0-0.7); EOSINOPHILS % (AUTO) 1.5 %; HCT - HEMATOCRIT 46.1 % (37.0-47.0); HGB - HEMOGLOBIN 15.4 g/dL (12.0-16.0); LYMPHOCYTES # (AUTO) 2.1 10^3/uL (1.5-3.5); LYMPHOCYTES % (AUTO) 34.4 %; MEAN CORPUSCULAR HEMOGLOBIN 30.9 pg (27.0-31.0); MEAN CORPUSCULAR HGB CONC 33.4 g/dL (32.0-36.0); MEAN CORPUSCULAR VOLUME 92.6 fL (81.0-99.0); MEAN PLATELET VOLUME 9.8 fL (7.9-10.8); MONOCYTES # (AUTO) 0.5 10^3/uL (0.0-1.0); MONOCYTES % (AUTO) 7.8 %; NEUTROPHILS # (AUTO) 3.4 10^3/uL (1.5-6.6); NEUTROPHILS % (AUTO) 55.6 %; PLT - PLATELET COUNT 239 10^3/uL (130-450); RED BLOOD COUNT 4.98 10^6/uL (4.20-5.40); RED CELL DISTRIBUTION WIDTH 12.9 % (12.0-15.0); WHITE BLOOD COUNT 6.2 x10^3/uL (4.8-10.8)
[2023-11-24 14:05] LABS: CREATININE,URINE 191.5 mg/dL; MICROALBUM/CREATININE RATIO,UR 52.7 ug/mg (<30.0); MICROALBUMIN,URINE 10.1 mg/dL
[2023-11-24 14:06] LABS: ALBUMIN 4.1 g/dL (3.2-5.5); ALBUMIN/GLOBULIN RATIO 1.5 (1.0-2.2); ALKALINE PHOSPHATASE 71 IU/L (42-121); ALT ALANINE AMINOTRANSFERASE 18 IU/L (10-60); AST ASPARTATE AMINOTRANSFERASE 12 IU/L (10-42); BILIRUBIN,TOTAL 1.4 mg/dL (0.2-1.0); BUN - BLOOD UREA NITROGEN 15 mg/dL (6-20); CALCIUM 9.4 mg/dL (8.5-10.3); CARBON DIOXIDE - CO2 29 mmol/L (21-32); CHLORIDE 104 mmol/L (101-111); CHOL/HDL RATIO 6.7 (<4.4); CHOLESTEROL 269 mg/dL; CREATININE 0.7 mg/dL (0.6-1.3); GFR - MDRD 83 (>89); GLUCOSE 229 mg/dL (74-104); HDL CHOLESTEROL 40 mg/dL; LDL CHOLESTEROL,CALCULATED 155 mg/dL; LDL/HDL RATIO 3.9 (<4.4); POTASSIUM 4.1 mmol/L (3.5-4.5); SODIUM 137 mmol/L (135-145); TOTAL PROTEIN 6.8 g/dL (6.4-8.9); TRIGLYCERIDES 370 mg/dL; VLDL CHOLESTEROL 74 mg/dL
[2023-11-24 22:08] LABS: ESTIMATED AVERAGE GLUCOSE 194 mg/dL (70-100); HEMOGLOBIN A1c% 8.4 % (4.27-6.07)
== END 2023-11-24 13:30 | disposition home or self-care (01) ==
LOC: LAB 13:29
PROVIDERS: ATTEND Family Medicine
DX: I25.2 Old myocardial infarction (principal); E11.22 Type 2 diabetes mellitus with diabetic chronic kidney disease; N18.2 Chronic kidney disease, stage 2 (mild); Z79.4 Long term (current) use of insulin; E78.1 Pure hyperglyceridemia; I10 Essential (primary) hypertension; E78.2 Mixed hyperlipidemia
CPT/HCPCS: 36415; 80053; 80061; 82043; 82570; 83036; 83721; 85025